=== PATIENT | male | born 1950 | race Caucasian/White ===

== ENCOUNTER → 2021-09-16 | Outpatient (CLI) | payer MEDICARE, OTHER ==
[~2021-09-16] MED LIST: ALPRAZOLAM0.5 MG PO; ARICEPT10 MG PO; ASPIRIN325 MG PO; BENTYL10 MG PO; COMPACT COMPRE1 EACH MC; COREG 3.125M3.125 MG PO; COZAAR100 MG PO; FISH OIL 1,0001 EACH PO; FLEXERIL 10 MG10 MG PO; IPRAT-ALBUT 0.5-3 ML NEB; ISOSORBIDE MON120 MG PO; LEVAQUIN TAB 5500 MG PO; LEXAPRO20 MG PO; LIPITOR TAB 2020 MG PO; LOTRISONE CREAM45 GM TP; NEURONTIN800 MG PO; NITROSTAT0.4 MG SL; NORCO 10-325 T1 EACH PO; OLANZAPINE7.5 MG PO; OMNICEF 300 MG300 MG PO; PANTOPRAZOLE SO40 MG PO; ROBITUSSIN DM473 ML PO; SPIRIVA18 MCG INH; SYMBICORT 80-41 INHA INH; TYLENOL 325MG325 MG PO; VENTOLIN/PROVE0.5 ML INH; ZANTAC150 MG PO; ZOLOFT50 MG PO; ZYRTEC10 MG PO
== END ==
LOC: KOH-I 10:59
DX: R74.8 Abnormal levels of other serum enzymes (principal); K76.0 Fatty (change of) liver, not elsewhere classified
CPT/HCPCS: 76705

== ENCOUNTER → 2021-09-16 | Outpatient (CLI) | payer MEDICARE, OTHER ==
[2021-09-16 15:57] LABS: GAMMA GLUTAMYL TRANSPEPTIDASE 1996 U/L (7-64)
[2021-09-17 09:13] LABS: HBSAG SCREEN Negative (Negative); HCV AB <0.1 (0.0-0.9); HEP A AB, IGM Negative (Negative); HEP B CORE AB, IGM Negative (Negative)
[2021-09-17 16:14] LABS: EBV AB VCA, IGG >600.0 U/mL (0.0-17.9)
== END ==
LOC: LAB 14:33
PROVIDERS: Nurse Practitioner Family
DX: B17.9 Acute viral hepatitis, unspecified (principal); R74.8 Abnormal levels of other serum enzymes
CPT/HCPCS: 36415; 80074; 80307; 82140; 82977; 83615; 86644; 86665

== ENCOUNTER 2021-11-17 08:00 | Emergency (ER) | payer MEDICARE, OTHER ==
[2021-11-17 08:39] LABS: HEMOGLOBIN 14.6 gm/dl (14.0-17.5); RED BLOOD COUNT 4.85 M/UL (4.20-5.50); WHITE BLOOD COUNT 8.9 K/UL (4.5-11.0)
[2021-11-17 09:07] LABS: BUN/CREATININE RATIO 10 (0-10)
[2021-11-17] MEDS ORDERED: LIPITOR40 MG PO (13:44)
[2021-11-17] MEDS ORDERED: ASPIRIN CHEWABL81 MG PO (13:44)
== END 2021-11-17 16:43 | disposition left against medical advice (07) ==
LOC: ER1 08:00
PROVIDERS: Emergency Medicine
DX: I73.9 Peripheral vascular disease, unspecified (principal); M79.671 Pain in right foot; I11.9 Hypertensive heart disease without heart failure; F17.200 Nicotine dependence, unspecified, uncomplicated; Z95.5 Presence of coronary angioplasty implant and graft
CPT/HCPCS: 73630; 75635; 80053; 82550; 82553; 84484; 85025; 93005; 93925; 93971; 99283; Q9967